=== PATIENT | female | born 1980 | race Caucasian/White ===

== ENCOUNTER → 2017-04-05 | Outpatient (REF) | payer OTHER | LOC: M LAB REF 16:42 | PROVIDERS: ATTEND Internal Medicine | DX: N92.6 Irregular menstruation, unspecified (principal) ==

== ENCOUNTER → 2018-11-25 | Outpatient (REF) | payer OTHER ==
[2018-11-25 13:44] LABS: BASO % 0.3 % (0.0-1.0); EOS % 0.5 % (0.0-3.0); HEMATOCRIT 42.9 % (36.0-47.0); HEMOGLOBIN 14.4 g/dl (12.0-15.5); LYMPH # 2.2 10^3/uL (1.5-4.5); LYMPH % 35.9 % (24.0-44.0); MEAN CORPUSCULAR HEMOGLOBIN 29.5 pg (27.0-33.0); MEAN CORPUSCULAR HGB CONC 33.6 g/dl (32.0-36.5); MEAN CORPUSCULAR VOLUME 87.9 fl (80.0-96.0); MONO # 0.4 10^3/uL (0.0-0.8); MONO % 5.8 % (0.0-5.0); NEUTROPHILS # 3.5 10^3/uL (1.8-7.7); NEUTROPHILS % 57.2 % (36.0-66.0); PLATELET COUNT, AUTOMATED 279 10^3/uL (150-450); RED BLOOD COUNT 4.88 10^6/uL (4.00-5.40); WHITE BLOOD COUNT 6.2 10^3/uL (4.0-10.0)
[2018-11-25 13:45] LABS: ALBUMIN 4.2 GM/DL (3.2-5.2); ALT/SGPT 17 U/L (12-78); BILIRUBIN,TOTAL 0.4 MG/DL (0.2-1.0); BLOOD UREA NITROGEN 11 MG/DL (7-18); CALCIUM LEVEL 8.7 MG/DL (8.5-10.1); CARBON DIOXIDE LEVEL 29 MEQ/L (21-32); CHLORIDE LEVEL 101 MEQ/L (98-107); CHOLESTEROL LEVEL 227 MG/DL (<200); CREATININE FOR GFR 0.68 MG/DL (0.55-1.30); GLOMERULAR FILTRATION RATE > 60.0 (>60); GLUCOSE, FASTING 78 MG/DL (70-100); HDL CHOLESTEROL 78 MG/DL (>40); LDL CHOLESTEROL 139 MG/DL (<100); NON-HDL-C 149 MG/DL; POTASSIUM SERUM 3.8 MEQ/L (3.5-5.1); SODIUM LEVEL 137 MEQ/L (136-145); THYROID PEROXIDASE ANTIBODY < 28.0 U/ML (<60.0); TOTAL 25(OH) VITAMIN D 30.6 NG/ML (30.0-100.0); TOTAL PROTEIN 7.7 GM/DL (6.4-8.2); TRIGLYCERIDES LEVEL 49 MG/DL (<150)
== END ==
LOC: M LABDRAW1 11:29
PROVIDERS: ATTEND Physician Assistant
DX: Z13.29 Encounter for screening for other suspected endocrine disorder (principal)

== ENCOUNTER → 2019-08-12 | Outpatient (CLI) | payer OTHER ==
--- NOTE | 2019-08-12 09:54 | REP ---
Clinical: Cough. Technique: PA and lateral. Comparison: None. Findings: Subtle left suprahilar opacity cannot be excluded and warrants reevaluation/follow-up. No further consolidation, effusion, or pneumothorax. Mediastinum and cardiac silhouette normal. Skeletal structures intact. Impression: Cannot exclude subtle left suprahilar opacity. Consider follow-up examination as well as chest CT if necessary. Electronically Signed by Miko Hair MD 08/12/2019 09:46 A
== END ==
LOC: M ADAMS 09:28
PROVIDERS: ATTEND Physician Assistant
DX: R05 Cough (principal)

== ENCOUNTER → 2019-08-12 | Outpatient (REF) | payer OTHER | LOC: M WUC 07:35 | PROVIDERS: ATTEND Physician Assistant | DX: J18.9 Pneumonia, unspecified organism (principal) ==

== ENCOUNTER → 2020-11-27 | Outpatient (CLI) | payer OTHER ==
[2020-11-27 11:30] LABS: BASO % 0.6 % (0.0-1.0); EOS # 0.1 10^3/uL (0.0-0.5); EOS % 1.5 % (0.0-3.0); HEMATOCRIT 40.9 % (36.0-47.0); HEMOGLOBIN 13.2 g/dl (12.0-15.5); LYMPH # 1.8 10^3/uL (1.5-5.0); LYMPH % 33.6 % (24.0-44.0); MEAN CORPUSCULAR HEMOGLOBIN 28.9 pg (27.0-33.0); MEAN CORPUSCULAR HGB CONC 32.3 g/dl (32.0-36.5); MEAN CORPUSCULAR VOLUME 89.5 fl (80.0-96.0); MONO # 0.4 10^3/uL (0.0-0.8); MONO % 7.4 % (2.0-8.0); NEUTROPHILS # 3.1 10^3/uL (1.5-8.5); NEUTROPHILS % 56.7 % (36.0-66.0); PLATELET COUNT, AUTOMATED 281 10^3/uL (150-450); RED BLOOD COUNT 4.57 10^6/uL (4.00-5.40); WHITE BLOOD COUNT 5.4 10^3/uL (4.0-10.0)
[2020-11-27 12:21] LABS: ALBUMIN 3.9 GM/DL (3.2-5.2); ALT/SGPT 19 U/L (12-78); BILIRUBIN,TOTAL 0.5 MG/DL (0.2-1.0); BLOOD UREA NITROGEN 17 MG/DL (7-18); CALCIUM LEVEL 8.7 MG/DL (8.5-10.1); CARBON DIOXIDE LEVEL 29 MEQ/L (21-32); CHLORIDE LEVEL 105 MEQ/L (98-107); CHOLESTEROL LEVEL 242 MG/DL (<200); CHOLESTEROL RISK RATIO 3.184 (<5); CREATININE FOR GFR 0.82 MG/DL (0.55-1.30); ESTRADIOL 106.5 PG/ML; FERRITIN 47 NG/ML (8-252); FOLLICLE STIMULATING HORMONE 4.2 mIU/mL; FREE T3 2.5 PG/ML (2.2-4.0); FREE T4 0.82 NG/DL (0.76-1.46); GLOMERULAR FILTRATION RATE > 60.0 (>60); GLUCOSE, FASTING 86 MG/DL (70-100); HDL CHOLESTEROL 76 MG/DL (>40); IRON (FE) 83 UG/DL (50-170); LDL CHOLESTEROL 154 MG/DL (<100); NON-HDL-C 166 MG/DL; POTASSIUM SERUM 4.7 MEQ/L (3.5-5.1); PROGESTERONE 4.88 NG/ML; SODIUM LEVEL 140 MEQ/L (136-145); TOTAL 25(OH) VITAMIN D 31.9 NG/ML (30.0-100.0); TOTAL PROTEIN 7.4 GM/DL (6.4-8.2); TRIGLYCERIDES LEVEL 59 MG/DL (<150); URIC ACID 3.6 MG/DL (2.6-6.0); VITAMIN B12 LEVEL 584 PG/ML (247-911)
[2020-11-27 12:22] LABS: LUTEINIZING HORMONE 6.8 mIU/mL
[2020-11-28 16:11] LABS: INSULIN LEVEL 7.8 uIU/mL (2.6-24.9); TESTOSTERONE FREE (DIRECT) 1.7 pg/mL (0.0-4.2)
== END ==
LOC: M WUC 08:19
PROVIDERS: ATTEND Family Medicine
DX: Z00.00 Encounter for general adult medical examination without abnormal findings (principal); Z13.0 Encounter for screening for diseases of the blood and blood-forming organs and certain disorders involving the immune mechanism; Z13.1 Encounter for screening for diabetes mellitus; E78.5 Hyperlipidemia, unspecified; R63.5 Abnormal weight gain; N95.1 Menopausal and female climacteric states; E34.9 Endocrine disorder, unspecified; E07.89 Other specified disorders of thyroid; R53.83 Other fatigue

== ENCOUNTER → 2021-01-02 | Outpatient (CLI) | payer OTHER ==
[2021-01-02 10:00] LABS: BASO % 0.7 % (0.0-1.0); EOS # 0.1 10^3/uL (0.0-0.5); EOS % 1.6 % (0.0-3.0); HEMATOCRIT 44.6 % (36.0-47.0); HEMOGLOBIN 14.5 g/dl (12.0-15.5); LYMPH # 2.1 10^3/uL (1.5-5.0); LYMPH % 36.4 % (24.0-44.0); MEAN CORPUSCULAR HGB CONC 32.5 g/dl (32.0-36.5); MEAN CORPUSCULAR VOLUME 89.2 fl (80.0-96.0); MONO # 0.5 10^3/uL (0.0-0.8); MONO % 8.5 % (2.0-8.0); NEUTROPHILS % 52.4 % (36.0-66.0); PLATELET COUNT, AUTOMATED 300 10^3/uL (150-450); WHITE BLOOD COUNT 5.7 10^3/uL (4.0-10.0)
[2021-01-02 10:34] LABS: ESTRADIOL 30.4 PG/ML; FOLLICLE STIMULATING HORMONE 7.2 mIU/mL; FREE T3 2.7 PG/ML (2.2-4.0); FREE T4 0.96 NG/DL (0.76-1.46); PROGESTERONE 0.39 NG/ML; THYROID STIMULATING HORMONE 1.93 uIU/ML (0.358-3.740)
[2021-01-03 19:07] LABS: TESTOSTERONE FREE (DIRECT) 6.5 pg/mL (0.0-4.2)
== END ==
LOC: M WUC 08:20
PROVIDERS: ATTEND Family Medicine
DX: N95.1 Menopausal and female climacteric states (principal); E07.89 Other specified disorders of thyroid; R89.1 Abnormal level of hormones in specimens from other organs, systems and tissues

== ENCOUNTER → 2021-06-11 | Outpatient (CLI) | payer OTHER ==
[2021-06-11 11:30] LABS: BASO # 0.1 10^3/uL (0.0-0.2); BASO % 0.8 % (0.0-1.0); EOS # 0.1 10^3/uL (0.0-0.5); EOS % 1.1 % (0.0-3.0); HEMATOCRIT 43.5 % (36.0-47.0); HEMOGLOBIN 14.2 g/dl (12.0-15.5); LYMPH # 2.2 10^3/uL (1.5-5.0); LYMPH % 33.9 % (24.0-44.0); MEAN CORPUSCULAR HEMOGLOBIN 29.5 pg (27.0-33.0); MEAN CORPUSCULAR HGB CONC 32.6 g/dl (32.0-36.5); MEAN CORPUSCULAR VOLUME 90.2 fl (80.0-96.0); MONO # 0.5 10^3/uL (0.0-0.8); MONO % 7.7 % (2.0-8.0); NEUTROPHILS # 3.6 10^3/uL (1.5-8.5); NEUTROPHILS % 56.3 % (36.0-66.0); PLATELET COUNT, AUTOMATED 348 10^3/uL (150-450); RED BLOOD COUNT 4.82 10^6/uL (4.00-5.40); WHITE BLOOD COUNT 6.3 10^3/uL (4.0-10.0)
[2021-06-11 12:26] LABS: ESTRADIOL 133.8 PG/ML; FOLLICLE STIMULATING HORMONE 7.5 mIU/mL; FREE T4 0.99 NG/DL (0.76-1.46); PROGESTERONE 0.26 NG/ML; THYROID STIMULATING HORMONE 2.63 uIU/ML (0.358-3.740)
[2021-06-12 20:07] LABS: TESTOSTERONE FREE (DIRECT) 2.8 pg/mL (0.0-4.2)
== END ==
LOC: M WUC 08:31
PROVIDERS: ATTEND Family Medicine
DX: R89.1 Abnormal level of hormones in specimens from other organs, systems and tissues (principal); N95.1 Menopausal and female climacteric states; E34.9 Endocrine disorder, unspecified; E07.89 Other specified disorders of thyroid

== ENCOUNTER → 2021-06-28 | Outpatient (CLI) | payer OTHER ==
--- NOTE | 2021-06-28 11:33 | REP ---
INDICATION: LT FT/ANK PLANTER FASCIAL FIBROMATOSIS LT FOOTPN. COMPARISON: None. TECHNIQUE: 3T multiplanar MRI imaging of the left ankle was obtained using various sequences. FINDINGS: The tendons of the tibialis anterior, extensor hallucis, and extensor digitorum muscles are intact and of normal appearing low signal throughout. The tendons of the tibialis posterior, flexor digitorum, and flexor hallucis muscles are intact and of normal appearing low signal throughout. The peroneal tendons are intact and of normal appearing low signal throughout. The Achilles tendon is intact and of normal appearing low signal throughout. The anterior and posteroinferior tibiofibular ligaments are intact. The anterior and posterior talofibular ligaments are intact. The calcaneofibular ligament is intact. The ligaments within the sinus tarsi are within normal limits and the sinus tarsi fat signal is preserved. The subtalar joints are within normal limits. There is no abnormal cystic degenerative change seen in the os calcis deep to the angle of [place] and the lateral talar process is sharp without evidence of cystic degenerative change. There is a moderate heel valgus deformity. The plantar aponeurosis appears somewhat thickened. No abnormal nodularity is present. The signal within and surrounding the plantar aponeurosis is within normal limits. IMPRESSION: 1. There is mild thickening of the plantar aponeurosis as described above. There is no evidence of plantar fascial edema or inflammation at this time. 2. There is no evidence of acute internal derangement. 3. There is a moderate heel valgus deformity without evidence of lateral hindfoot impingement. Findings as described above. <Electronically signed by Brannon Rivera > 06/28/21 1121
--- NOTE | 2021-06-28 11:38 | REP ---
INDICATION: LT FT/ANK PLANTER FASCIAL FIBROMATOSIS LT FOOTPN. COMPARISON: None. TECHNIQUE: 3T multiplanar MRI imaging of the left foot was obtained using various sequences. FINDINGS: Very subtle T2 hyper signal is seen superficial to the lateral margin of the plantar aponeurosis. This is also seen to a lesser degree medially at the same level which is approximately 3 cm from its calcaneal insertion. The plantar aponeurosis itself is mildly thickened but without evidence of nodularity or abnormal intrinsic signal. The plantar soft tissues are otherwise within normal limits. There is no evidence of a mass or mass effect. There is no evidence of a joint effusion. All chondral surfaces appear smooth. The marrow signal is within normal limits. IMPRESSION: There is minimal subcutaneous plantar edema as described above. There is no evidence of active plantar fasciitis at this time. There is circumferential thickening of the plantar aponeurosis. <Electronically signed by Brannon Rivera > 06/28/21 [id number]
== END ==
LOC: M RAD 08:48
PROVIDERS: ATTEND Podiatrist
DX: M72.2 Plantar fascial fibromatosis (principal); M79.672 Pain in left foot; M24.275 Disorder of ligament, left foot

== ENCOUNTER → 2022-03-03 | Outpatient (CLI) | payer OTHER ==
[2022-03-03 09:53] LABS: BASO % 0.7 % (0.0-1.0); EOS # 0.1 10^3/uL (0.0-0.5); EOS % 1.4 % (0.0-3.0); HEMATOCRIT 41.1 % (36.0-47.0); HEMOGLOBIN 13.6 g/dl (12.0-15.5); LYMPH # 2.1 10^3/uL (1.5-5.0); LYMPH % 37.1 % (24.0-44.0); MEAN CORPUSCULAR HEMOGLOBIN 29.2 pg (27.0-33.0); MEAN CORPUSCULAR HGB CONC 33.1 g/dl (32.0-36.5); MEAN CORPUSCULAR VOLUME 88.2 fl (80.0-96.0); MONO # 0.5 10^3/uL (0.0-0.8); MONO % 8.5 % (2.0-8.0); NEUTROPHILS # 2.9 10^3/uL (1.5-8.5); NEUTROPHILS % 51.9 % (36.0-66.0); PLATELET COUNT, AUTOMATED 301 10^3/uL (150-450); RED BLOOD COUNT 4.66 10^6/uL (4.00-5.40); WHITE BLOOD COUNT 5.5 10^3/uL (4.0-10.0)
[2022-03-03 10:46] LABS: ESTRADIOL 202.2 PG/ML; FOLLICLE STIMULATING HORMONE 5.2 mIU/mL; PROGESTERONE 0.28 NG/ML
[2022-03-04 18:07] LABS: TESTOSTERONE FREE (DIRECT) 1.2 pg/mL (0.0-4.2)
== END ==
LOC: M WUC 08:12
PROVIDERS: ATTEND Physician Assistant Medical
DX: R89.1 Abnormal level of hormones in specimens from other organs, systems and tissues (principal); N95.1 Menopausal and female climacteric states; E34.9 Endocrine disorder, unspecified; E07.89 Other specified disorders of thyroid

== ENCOUNTER → 2022-11-09 | Outpatient (CLI) | payer OTHER ==
[2022-11-09 09:27] LABS: BASO # 0.1 10^3/uL (0.0-0.2); EOS # 0.1 10^3/uL (0.0-0.5); EOS % 2.1 % (0.0-3.0); HEMATOCRIT 42.2 % (36.0-47.0); HEMOGLOBIN 13.9 g/dl (12.0-15.5); LYMPH # 2.5 10^3/uL (1.5-5.0); LYMPH % 40.4 % (24.0-44.0); MEAN CORPUSCULAR HEMOGLOBIN 29.1 pg (27.0-33.0); MEAN CORPUSCULAR HGB CONC 32.9 g/dl (32.0-36.5); MEAN CORPUSCULAR VOLUME 88.5 fl (80.0-96.0); MONO # 0.4 10^3/uL (0.0-0.8); MONO % 7.1 % (2.0-8.0); NEUTROPHILS # 3.1 10^3/uL (1.5-8.5); NEUTROPHILS % 49.2 % (36.0-66.0); PLATELET COUNT, AUTOMATED 321 10^3/uL (150-450); RED BLOOD COUNT 4.77 10^6/uL (4.00-5.40); WHITE BLOOD COUNT 6.2 10^3/uL (4.0-10.0)
[2022-11-09 09:54] LABS: ESTRADIOL 29.9 PG/ML; FOLLICLE STIMULATING HORMONE 9.8 mIU/ML; PROGESTERONE 0.57 NG/ML
[2022-11-10 15:07] LABS: TESTOSTERONE FREE (DIRECT) 1.3 pg/mL (0.0-4.2)
== END ==
LOC: M WUC 08:16
PROVIDERS: ATTEND Family Medicine
DX: R89.1 Abnormal level of hormones in specimens from other organs, systems and tissues (principal); N95.1 Menopausal and female climacteric states; E07.89 Other specified disorders of thyroid; E34.9 Endocrine disorder, unspecified

== ENCOUNTER → 2023-09-16 | Outpatient (REF) | payer OTHER ==
[2023-09-16 14:07] LABS: BASO % 0.5 % (0.0-1.0); EOS # 0.1 10^3/uL (0.0-0.5); EOS % 1.1 % (0.0-3.0); HEMATOCRIT 39.3 % (36.0-47.0); HEMOGLOBIN 13.1 g/dl (12.0-15.5); LYMPH # 2.2 10^3/uL (1.5-5.0); LYMPH % 35.9 % (24.0-44.0); MEAN CORPUSCULAR HGB CONC 33.3 g/dl (32.0-36.5); MEAN CORPUSCULAR VOLUME 89.9 fl (80.0-96.0); MONO # 0.4 10^3/uL (0.0-0.8); MONO % 6.7 % (2.0-8.0); NEUTROPHILS # 3.4 10^3/uL (1.5-8.5); NEUTROPHILS % 55.5 % (36.0-66.0); PLATELET COUNT, AUTOMATED 291 10^3/uL (150-450); RED BLOOD COUNT 4.37 10^6/uL (4.00-5.40); WHITE BLOOD COUNT 6.1 10^3/uL (4.0-10.0)
[2023-09-16 14:16] LABS: ESTRADIOL 169.3 PG/ML; FOLLICLE STIMULATING HORMONE 2.8 mIU/ML
[2023-09-16 14:17] LABS: PROGESTERONE 16.8 NG/ML
[2023-09-17 16:08] LABS: TESTOSTERONE FREE (DIRECT) 1.2 pg/mL (0.0-4.2)
== END ==
LOC: M LABWUC 12:52
PROVIDERS: ATTEND Family Medicine
DX: R89.1 Abnormal level of hormones in specimens from other organs, systems and tissues (principal); N95.1 Menopausal and female climacteric states; E34.9 Endocrine disorder, unspecified; E07.89 Other specified disorders of thyroid